=== PATIENT | female | born 1965 | race American Indian/Alaskan Native ===

== ENCOUNTER 2018-10-07 07:02 | Emergency (ER) | payer SELFPAY ==
--- NOTE | 2018-10-07 08:16 | Emergency Department Report ---
ED General Adult HPI - General Chief complaint: Abdominal Pain Stated complaint: EMESIS/DIARRHEA Source: patient Mode of arrival: Ambulatory Limitations: No Limitations - History of Present Illness Initial comments: Patient is 53 years old female with no significant past medical history. Patient presented to the ER complaining of 2 weeks history of cough congestion and sinus drainage. Cough is productive with greenish sputum. Patient denied any fever. Patient also complaining of crampy abdominal pain associated with nausea, vomiting and watery diarrhea. Patient stated that last time she vomited yesterday. Patient denied any hematemesis, hematochezia or melena. - Related Data Allergies Allergy/AdvReac Type Severity Reaction Status Date / Time No Known Allergies Allergy Unverified 10/07/18 07:19 ED Review of Systems ROS: Stated complaint: EMESIS/DIARRHEA Other details as noted in HPI Comment: All other systems reviewed and negative ENT: congestion. denies: throat pain Cardiovascular: denies: chest pain, palpitations, dyspnea on exertion Gastrointestinal: abdominal pain, nausea, vomiting, diarrhea. denies: constipation, hematemesis, melena, hematochezia Musculoskeletal: denies: back pain Neurological: denies: headache, weakness, numbness, paresthesias, confusion, abnormal gait ED Past Medical Hx - Past Medical History Previous Medical History?: Yes Additional medical history: hyperthyroid - Surgical History Past Surgical History?: No - Social History Smoking Status: Never Smoker Substance Use Type: None ED Physical Exam - General Limitations: No Limitations General appearance: alert, in no apparent distress - Head Head exam: Present: atraumatic, normocephalic, normal inspection - Eye Eye exam: Present: normal appearance, PERRL - ENT ENT exam: Present: normal exam, normal orophraynx, mucous membranes moist - Neck Neck exam: Present: normal inspection, full ROM. Absent: tenderness, meningismus, lymphadenopathy, thyromegaly - Respiratory Respiratory exam: Present: normal lung sounds bilaterally. Absent: respiratory distress, wheezes, rales, rhonchi, stridor, chest wall tenderness, accessory muscle use, decreased breath sounds, prolonged expiratory - Cardiovascular Cardiovascular Exam: Present: regular rate, normal rhythm, normal heart sounds - GI/Abdominal GI/Abdominal exam: Present: soft, normal bowel sounds. Absent: distended, tenderness, guarding, rebound, rigid, organomegaly, mass, bruit, pulsatile mass, hernia - Extremities Exam Extremities exam: Present: normal inspection, full ROM, normal capillary refill. Absent: pedal edema, calf tenderness - Back Exam Back exam: Present: normal inspection, full ROM. Absent: tenderness, CVA tenderness (R), CVA tenderness (L), muscle spasm, paraspinal tenderness, vertebral tenderness - Neurological Exam Neurological exam: Present: alert, oriented X3, CN II-XII intact, normal gait, reflexes normal - Skin Skin exam: Present: warm, intact, normal color ED Course Vital Signs 10/07/18 07:19 Temperature 98.6 F Pulse Rate 80 Respiratory 16 Rate Blood Pressure 116/71 O2 Sat by Pulse 99 Oximetry ED Medical Decision Making - Medical Decision Making Patient's symptoms is most likely related to upper respiratory infection associated with gastroenteritis. Patient abdomen is soft, nontender no evidence of guarding. No evidence of acute abdomen. I will prescribe Augmentin for 7 days and Zofran and advised patient to call HER primary care physician in the next 2-3 days and to return to the ER if her symptoms are not improved. Critical care attestation.: If time is entered above; I have spent that time in minutes in the direct care of this critically ill patient, excluding procedure time. ED Disposition Clinical Impression: Abdominal pain, Sinusitis, Gastroenteritis Disposition: - TO HOME OR SELFCARE Is pt being admited?: No Condition: Stable Instructions: Sinusitis (ED), Abdominal Pain (ED) Referrals: REHAN CLEANING MD [Primary Care Provider] - 3-5 Days Forms: Work/School Release Form(ED)
[2018-10-07 15:18] VITALS: BP 116/71
== END 2018-10-07 08:24 | disposition home or self-care (01) ==
LOC: ED 07:02
DX: K52.9 Noninfective gastroenteritis and colitis, unspecified (principal); J01.90 Acute sinusitis, unspecified
CPT/HCPCS: 99282